=== PATIENT | male | born 1965 | race African-American/Black ===

== ENCOUNTER 2022-08-29 09:54 | Emergency (ER) | payer MEDICARE, MEDICAID ==
[~2022-08-29] VITALS: Ht 177.8 cm; Wt 90.0 kg
[~2022-08-29 09:54] MED LIST: ASPI-1406 PO; COR3 PO; LISI-186 PO; PRAV20TA PO
[2022-08-29 10:25] VITALS: BP 143/89
[2022-08-29] MEDS ORDERED: SODIUM CHLORIDE 0.9% 1,000 ML IV ONE (10:45)
== END 2022-08-29 11:30 | disposition home or self-care (01) ==
LOC: ER 10:14
DX: R55 Syncope and collapse (principal); R06.02 Shortness of breath; R42 Dizziness and giddiness; E11.9 Type 2 diabetes mellitus without complications; E78.00 Pure hypercholesterolemia, unspecified; I10 Essential (primary) hypertension; Z86.73 Personal history of transient ischemic attack (TIA), and cerebral infarction without residual deficits; Z79.899 Other long term (current) drug therapy
CPT/HCPCS: 70450; 71045; 99284; J7030

== ENCOUNTER 2024-11-14 01:18 | Emergency (ER) | payer MEDICARE, MEDICAID ==
[~2024-11-14] VITALS: Ht 188 cm; Wt 131.0 kg
[2024-11-14 02:00] VITALS: TEMP 36.6; O2SAT 96
[2024-11-14] MEDS: KETOROLAC 30MG/ML VIAL IM ONE (02:39)
[2024-11-14] MEDS ORDERED: KETO10TA2 MT (04:12)
[2024-11-14 04:32] VITALS: BP 151/96; PULSE 86; RESP 12; O2SAT 97
== END 2024-11-14 04:36 | disposition home or self-care (01) ==
LOC: ER 02:16
DX: M25.511 Pain in right shoulder (principal); E11.9 Type 2 diabetes mellitus without complications; I10 Essential (primary) hypertension; Z86.73 Personal history of transient ischemic attack (TIA), and cerebral infarction without residual deficits; Z79.899 Other long term (current) drug therapy
CPT/HCPCS: 99283; 73030; 96372; J1885